=== PATIENT | female | born 1950 | race Two or more races ===

== ENCOUNTER 2022-01-23 14:55 | Emergency (ER) | payer OTHER ==
[~2022-01-23] VITALS: Ht 160 cm; Wt 82.6 kg
[2022-01-23] MEDS ORDERED: COLACE100 MG PO (15:19)
[2022-01-23] MEDS ORDERED: GLUMETZA1000 MG PO (15:19)
[2022-01-23] MEDS ORDERED: ATORVASTATIN CA80 MG PO (15:19)
[2022-01-23] MEDS ORDERED: CARVEDILOL ER40 MG (15:19)
[2022-01-23] MEDS ORDERED: LOSARTAN POTASS50 MG PO (15:20)
[2022-01-23] MEDS ORDERED: AMLODIPINE-OLM1 EAC2 PO (15:20)
[2022-01-23] MEDS ORDERED: SULINDAC200 MG PO (15:20)
[2022-01-23] MEDS ORDERED: BUSPIRONE HCL7.5 MG (15:20)
[2022-01-23] MEDS ORDERED: HYDROCHLOROTH12.5 MG PO (15:21)
[2022-01-23] MEDS ORDERED: LANTUS SOL100 UNIT/1 (15:21)
[2022-01-23] MEDS ORDERED: INTEGRA PLUS C1 EACH PO (15:22)
[2022-01-23] MEDS ORDERED: DULOXETINE HCL40 MG (15:22)
[2022-01-23] MEDS ORDERED: CHILDREN'S ASPI81 MG PO (15:22)
[2022-01-23] MEDS ORDERED: PLAVIX75 MG PO (15:22)
[2022-01-23] MEDS ORDERED: GABAPENTIN800 M1 PO (15:23)
== END 2022-01-24 01:17 | disposition home or self-care (01) ==
LOC: ER 14:55
DX: G44.40 Drug-induced headache, not elsewhere classified, not intractable (principal); T44.7X5A Adverse effect of beta-adrenoreceptor antagonists, initial encounter; Z88.0 Allergy status to penicillin